=== PATIENT | male | born 1960 | race Caucasian/White ===

== ENCOUNTER 2019-11-27 10:17 | Emergency (ER) | payer SELFPAY ==
[~2019-11-27] VITALS: Ht 172.7 cm; Wt 86.0 kg
[2019-11-27 10:31] VITALS: BP 172/95
[2019-11-27] MEDS ORDERED: KETOROLAC 30 MG/ML VIAL. IM ONE (11:30)
[2019-11-27] MEDS ORDERED: DEXAMETHASONE 4 MG TABLET PO ONE (11:30)
[2019-11-27] MEDS ORDERED: NAPR-695 PO (11:59)
[2019-11-27] MEDS ORDERED: PRED20TA PO (11:59)
--- NOTE | 2019-11-27 12:00 | PHYS DOC ---
Past Medical History Past Medical History: No Pertinent History Past Surgical History: Other Additional Past Surgical Histo: RIGHT WRIST Smoking Status: Current Every Day Smoker Alcohol Use: None General Adult EDM: Chief Complaint: THUMB HPI: HPI: Patient is a 58 year old [f__sex] who presents with [] Review of Systems: Review of Systems: Constitutional: Denies fever or chills. [] Eyes: Denies change in visual acuity. [] HENT: Denies nasal congestion or sore throat. [] Respiratory: Denies cough or shortness of breath. [] Cardiovascular: Denies chest pain or edema. [] GI: Denies abdominal pain, nausea, vomiting, bloody stools or diarrhea. [] : Denies dysuria. [] Musculoskeletal: Denies back pain or joint pain. [] Integument: Denies rash. [] Neurologic: Denies headache, focal weakness or sensory changes. [] Endocrine: Denies polyuria or polydipsia. [] Lymphatic: Denies swollen glands. [] Psychiatric: Denies depression or anxiety. [] Heart Score: Risk Factors: Risk Factors: DM, Current or recent (<one month) smoker, HTN, HLP, family history of CAD, obesity. Risk Scores: Score 0 - 3: 2.5% MACE over next 6 weeks - Discharge Home Score 4 - 6: 20.3% MACE over next 6 weeks - Admit for Clinical Observation Score 7 - 10: 72.7% MACE over next 6 weeks - Early Invasive Strategies Current Medications: Current Medications Medications (Trade) Dose Ordered Sig/Domonique Start Time Stop Time Status Last Admin Dose Admin Dexamethasone (Decadron) 10 mg 1X ONCE 11/27/19 11:30 11/27/19 11:31 DC 11/27/19 11:09 10 MG Ketorolac Tromethamine (Toradol 30mg Vial) 30 mg 1X ONCE 11/27/19 11:30 11/27/19 11:31 DC 11/27/19 11:08 30 MG Allergies: Allergies: Allergies Coded Allergies Type Severity Reaction Last Updated Verified No Known Drug Allergies 11/27/19 No Physical Exam: PE: Constitutional: Well developed, well nourished, no acute distress, non-toxic appearance. [] HENT: Normocephalic, atraumatic, bilateral external ears normal, oropharynx moist, no oral exudates, nose normal. [] Eyes: PERRLA, EOMI, conjunctiva normal, no discharge. [] Neck: Normal range of motion, no tenderness, supple, no stridor. [] Cardiovascular:Heart rate regular rhythm, no murmur [] Lungs & Thorax: Bilateral breath sounds clear to auscultation [] Abdomen: Bowel sounds normal, soft, no tenderness, no masses, no pulsatile masses. [] Skin: Warm, dry, no erythema, no rash. [] Back: No tenderness, no CVA tenderness. [] Extremities: No tenderness, no cyanosis, no clubbing, ROM intact, no edema. [] Neurologic: Alert and oriented X 3, normal motor function, normal sensory function, no focal deficits noted. [] Psychologic: Affect normal, judgement normal, mood normal. [] Current Patient Data: Vital Signs: Vital Signs Date Time Temp Pulse Resp B/P (MAP) Pulse Ox O2 Delivery O2 Flow Rate FiO2 11/27/19 10:31 98.9 114 18 172/95 (120) 99 Room Air 98.9 EKG: EKG: [] Radiology/Procedures: Radiology/Procedures: [] Course & Med Decision Making: Course & Med Decision Making Pertinent Labs and Imaging studies reviewed. (See chart for details) [] Dragon Disclaimer: [email or web address] Disclaimer: This electronic medical record was generated, in whole or in part, using a voice recognition dictation system. Departure Departure Impression: Primary Impression: Gout Qualified Codes: M10.9 - Gout, unspecified Disposition: HOME, SELF-CARE Condition: STABLE Referrals: NO PCP (PCP) Patient Instructions: Arthritis, Nonspecific, [id number]-[id number], Gout, [id number] Scripts Prednisone (PREDNISONE) 20 Mg Tablet 2 TAB PO DAILY, #8 TAB Start this prescription tomorrow, Sunday11/28/19 Prov: KAREN SINGH DO 11/27/19 Naproxen (NAPROXEN) 375 Mg Tablet 375 MG PO TID PRN PRN for PAIN, #30 TAB Prov: KAREN SINGH DO 11/27/19 Justicifation of Admission Dx: Justifications for Admission: Justification of Admission Dx: N/A KAREN SINGH DO Nov 27, 2019 11:59
--- NOTE | 2019-11-27 12:09 | RAD ---
PROCEDURE: HAND RIGHT 3V CLINICAL INDICATION / HISTORY: Reason: thumb pain/swelling, hx of possible retained metal / Spl. Instructions: / History: . TECHNIQUE: PA, lateral and oblique views of the right hand. COMPARISON: None FINDINGS: No acute fracture or dislocation is identified. There are bulky osteophytes at the interphalangeal joint of the right thumb with near [id number] contact evident on the radial aspect of the first digit IP joint. There is questionable demineralization on the radial aspect of the distal phalangeal endplate. There is associated marked surrounding soft tissue swelling. The bone density is otherwise normal. Incidental degenerative changes are present at the first CMC joint. The joint spaces are otherwise maintained, and there are no other erosions to suggest an inflammatory arthropathy. The soft tissues are unremarkable otherwise. IMPRESSION: Advanced degenerative change at the right thumb interphalangeal joint with possible radial sided erosions that could reflect an inflammatory arthropathy. This is associated with soft tissue swelling around that joint Electronically signed by: Thor Rivera MD (11/27/2019 12:06 PM) [id number]
== END 2019-11-27 12:10 | disposition home or self-care (01) ==
LOC: ER 10:17
DX: M10.9 Gout, unspecified (principal); M79.641 Pain in right hand; F17.200 Nicotine dependence, unspecified, uncomplicated; Z98.890 Other specified postprocedural states
CPT/HCPCS: 73130; 96372; 99283; J1885

== ENCOUNTER 2019-12-15 13:18 | Emergency (ER) | payer SELFPAY ==
[~2019-12-15] VITALS: Ht 172.7 cm; Wt 85.5 kg
[2019-12-15 13:18] VITALS: BP 158/106
[~2019-12-15 13:18] MED LIST: NAPR-695 PO; PRED20TA PO
[2019-12-15] MEDS ORDERED: PRED20TA PO (14:29)
[2019-12-15] MEDS ORDERED: COLCHICINE 0.6 MG TABLET PO ONE (14:30)
--- NOTE | 2019-12-15 14:30 | PHYS DOC ---
Past Medical History Past Medical History: Other Additional Past Medical Histor: GOUT Past Surgical History: Other Additional Past Surgical Histo: RIGHT WRIST Smoking Status: Current Every Day Smoker Additional Information: 0.5 PPD Alcohol Use: None General Adult EDM: Chief Complaint: THUMB HPI: HPI: Patient is a 59 year old male who presents to the emergency department with complaints of redness, swelling, and pain over the DIP of his right thumb. Patient states he was seen here couple weeks ago and treated for gout. His symptoms improved but then came back again this morning. He denies any injury, numbness, tingling, weakness, warmth, or drainage from the site. He denies any fever. He currently rates pain 5 out of 10 on the pain scale denies any alleviating factors pain is worse with palpation movement. Review of Systems: Review of Systems: Constitutional: Denies fever or chills. [] Musculoskeletal: See HPI Integument: See HPI Neurologic: Denies focal weakness or sensory changes. [] Complete ROS is negative unless otherwise stated in the HPI. Heart Score: Risk Factors: Risk Factors: DM, Current or recent (<one month) smoker, HTN, HLP, family history of CAD, obesity. Risk Scores: Score 0 - 3: 2.5% MACE over next 6 weeks - Discharge Home Score 4 - 6: 20.3% MACE over next 6 weeks - Admit for Clinical Observation Score 7 - 10: 72.7% MACE over next 6 weeks - Early Invasive Strategies Allergies: Allergies: Allergies Coded Allergies Type Severity Reaction Last Updated Verified No Known Drug Allergies 11/27/19 No Physical Exam: PE: Constitutional: Well developed, well nourished, no acute distress, non-toxic ap pearance. [] HENT: Normocephalic, atraumatic, bilateral external ears normal, nose normal. [] Eyes: PERRLA, EOMI, conjunctiva normal, no discharge. [] Neck: Normal range of motion, no stridor. [] Cardiovascular:Heart rate regular rhythm Lungs & Thorax: Respirations even and unlabored, no retractions, no respiratory distress Skin: Warm, dry; erythema without warmth or drainage noted over the DIP of the right thumb, consistent with gout Extremities: Right thumb: Tenderness over the DIP, no crepitus, no obvious deformity, 2+ edema, PMS intact no cyanosis Neurologic: Alert and oriented X 3, no focal deficits noted. [] Psychologic: Affect normal, judgement normal, mood normal. [] Current Patient Data: Vital Signs: Vital Signs Date Time Temp Pulse Resp B/P (MAP) Pulse Ox O2 Delivery O2 Flow Rate FiO2 12/15/19 13:18 98.3 117 19 158/106 (123) 95 Room Air 98.3 EKG: EKG: [] Radiology/Procedures: Radiology/Procedures: [] Course & Med Decision Making: Course & Med Decision Making Pertinent Labs and Imaging studies reviewed. (See chart for details) [] Dragon Disclaimer: Drag[employer] Disclaimer: This electronic medical record was generated, in whole or in part, using a voice recognition dictation system. 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 Follow the diet instructions provided. Follow-up with your primary care doctor using the list below. Return to the ER if symptoms worsen. [facility] [address] [place] [address] [facility] [address] [place] [address] [facility] [address] [facility] [place] [address] [facility] [address] [place] [address] [facility] [address] [place] [address] [facility] [address] [place] [address] [facility] [address] [place] [address] [facility] [address] [place] [address] [facility] [address] [place] [address] [facility] [address] [place] [address] Scripts Prednisone (PREDNISONE) 20 Mg Tablet 1 TAB PO UD for 16 Days, #20 TAB 2 tabs by mouth days 1-4 then 1.5 tabs by mouth days 5-8 then 1 tab by mouth days 9-12 then 0.5 tab by mouth day 13-16 Prov: AILYN GARCIA APRN 12/15/19 Justicifation of Admission Dx: Justifications for Admission: Justification of Admission Dx: N/A AILYN GARCIA APRN Dec 15, 2019 14:30
== END 2019-12-15 14:58 | disposition home or self-care (01) ==
LOC: ER 13:18
DX: M1A.0410 Idiopathic chronic gout, right hand, without tophus (tophi) (principal); R60.0 Localized edema; F17.200 Nicotine dependence, unspecified, uncomplicated; Z98.890 Other specified postprocedural states
CPT/HCPCS: 99283